=== PATIENT | female | born 1995 | race Caucasian/White ===

== ENCOUNTER → 2024-03-06 | Outpatient (CLI) | payer OTHER ==
[2024-03-06 19:48] LABS: HEMATOCRIT 31.2 % (36.0-47.0); HEMOGLOBIN 9.4 g/dl (12.0-15.5); MEAN CORPUSCULAR HGB CONC 30.1 g/dl (32.0-36.5); PLATELET COUNT, AUTOMATED 188 10^3/uL (150-450); RED BLOOD COUNT 3.76 10^6/uL (4.00-5.40); WHITE BLOOD COUNT 6.5 10^3/uL (4.0-10.0)
[2024-03-06 20:06] LABS: TOTAL PROTEIN,RANDOM URINE 39.2 MG/DL (0.0-14.0)
[2024-03-06 20:09] LABS: URIC ACID 5.3 MG/DL (3.1-7.8)
[2024-03-06 20:11] LABS: LDH LACTATE DEHYDROGENASE 210 U/L (120-246)
[2024-03-06 20:12] LABS: ALT/SGPT < 9 U/L (7.0-40); AST/SGOT 12 U/L (<34); BILIRUBIN,TOTAL 0.6 MG/DL (0.3-1.2); CREATININE FOR GFR 0.64 MG/DL (0.55-1.30); GLOMERULAR FILTRATION RATE > 60.0 (>60); IRON (FE) 41 UG/DL (50-170); PERCENT SATURATION 9.1 % (13.2-45.0); TOTAL IRON BINDING CAPACITY 450 UG/DL (250-425)
[2024-03-06 20:26] LABS: CREATININE,RANDOM URINE 283.8 MG/DL
== END ==
LOC: M PLALAB 16:08
PROVIDERS: ATTEND Nurse Practitioner Family
DX: O16.3 Unspecified maternal hypertension, third trimester (principal); Z3A.36 36 weeks gestation of pregnancy

== ENCOUNTER → 2024-03-06 | Outpatient (REF) | payer OTHER ==
[~2024-03-06] MED LIST: ASPI81TA26 PO; IRON65TA2 PO; THERTAB52 PO; VITA-243 PO
== END ==
LOC: M PLALAB 14:34
PROVIDERS: ATTEND Nurse Practitioner Family
DX: O16.3 Unspecified maternal hypertension, third trimester (principal); Z3A.36 36 weeks gestation of pregnancy

== ENCOUNTER 2024-03-16 13:09 | Outpatient (CLI) | payer OTHER ==
[~2024-03-16] VITALS: Ht 152.4 cm; Wt 120.0 kg
[~2024-03-16 13:09] MED LIST changes: +ALBUTEROL SULFATE 2.5MG/0.5ML INH NEB SOLN INH PRN; +EPINEPHrine INJ 1 MG/ML 1ML AMP IM PRN; +diphenhydrAMINE 50MG/ML VIAL IV PRN; +methylPREDNISolone 125MG 2ML VIAL IV PRN
[2024-03-16 13:20] VITALS: BP 134/83; O2SAT 98
[2024-03-16] MEDS: diphenhydrAMINE 25MG CAP PO ONE (13:28)
[2024-03-16] MEDS: ACETAMINOPHEN 650 MG PO ONE (13:28)
[2024-03-16] MEDS: FERRIC CARBOXYMALTOSE 750 MG (VIAL MATE) IN 100ML NS IV ONE (13:34)
[2024-03-16 14:30] VITALS: BP_SYST 113; BP_SYST 177; BP_DIAS 56; BP_DIAS 84; O2SAT 99
== END 2024-03-16 14:30 | disposition home or self-care (01) ==
LOC: M INFU 13:09
PROVIDERS: ATTEND Nurse Practitioner Family
DX: D64.9 Anemia, unspecified (principal); Z91.048 Other nonmedicinal substance allergy status
CPT/HCPCS: 96365; J1439

== ENCOUNTER 2024-03-23 12:20 | Outpatient (CLI) | payer OTHER ==
[~2024-03-23] VITALS: Ht 154.9 cm; Wt 119.0 kg
[2024-03-23] MEDS: diphenhydrAMINE 25MG CAP PO ONE (12:30)
[2024-03-23] MEDS: ACETAMINOPHEN 650 MG PO ONE (12:30)
[2024-03-23] MEDS: FERRIC CARBOXYMALTOSE 750 MG (VIAL MATE) IN 100ML NS IV ONE (12:40)
[2024-03-23 12:58] VITALS: BP 135/77; O2SAT 98
== END 2024-03-23 13:00 ==
LOC: M INFU 12:20
PROVIDERS: ATTEND Nurse Practitioner Family
DX: D64.9 Anemia, unspecified (principal); Z91.09 Other allergy status, other than to drugs and biological substances
CPT/HCPCS: 96365; J1439

== ENCOUNTER 2024-03-26 02:21 | Inpatient (IN) | payer OTHER ==
[~2024-03-26] VITALS: Ht 152.4 cm; Wt 118.3 kg
[2024-03-26] VITALS (10 sets, daily range): BP systolic 110–142; BP diastolic 63–80; TEMP 96.6; O2SAT 97–100
[~2024-03-26 02:21] MED LIST changes: -ALBUTEROL SULFATE 2.5MG/0.5ML INH NEB SOLN INH PRN; -EPINEPHrine INJ 1 MG/ML 1ML AMP IM PRN; -diphenhydrAMINE 50MG/ML VIAL IV PRN; -methylPREDNISolone 125MG 2ML VIAL IV PRN
[2024-03-26] MEDS ORDERED: ceFAZolin SOD 2 GM in IV 1 EA IV ONE (05:40)
[2024-03-26] MEDS: LACTATED RINGER'S 1000 ML IV STA (05:40)
[2024-03-26] MEDS ORDERED: LR 1,000 ML IV SCH (05:40)
[2024-03-26 06:54] LABS: HEMATOCRIT 35.1 % (36.0-47.0); MEAN CORPUSCULAR HEMOGLOBIN 26.4 pg (27.0-33.0); MEAN CORPUSCULAR HGB CONC 31.3 g/dl (32.0-36.5); MEAN CORPUSCULAR VOLUME 84.2 fl (80.0-96.0); PLATELET COUNT, AUTOMATED 177 10^3/uL (150-450); RED BLOOD COUNT 4.17 10^6/uL (4.00-5.40); WHITE BLOOD COUNT 6.9 10^3/uL (4.0-10.0)
[2024-03-26] MEDS ORDERED: ceFAZolin SOD 3 GM in IV 1 EA IV ONE (07:20)
[2024-03-26] MEDS: ceFAZolin SOD 2 GM in IV 1 EA IV ONE (07:30)
[2024-03-26] MEDS: BICITRA 30ML SOLN UDC PO ONE (07:32)
[2024-03-26] MEDS: ceFAZolin SOD 1 GM in DEXTROSE 5% (D5W) ADV/MINI-BAG 50 ML IV ONE (07:33)
[2024-03-26] MEDS ORDERED: MORPHINE PRES-FREE INJ 10 MG/10 ML VIAL As Ordered ONE (07:35)
[2024-03-26] MEDS ORDERED: OXYTOCIN 30UNITS IN 0.9% NaCl 500ML IV BAG As Ordered ONE (07:35)
[2024-03-26] MEDS ORDERED: METOCLOPRAMIDE INJ 10MG/2ML VIAL As Ordered ONE (07:35)
[2024-03-26] MEDS ORDERED: ONDANSETRON 4MG 2ML VIAL As Ordered ONE (07:36)
[2024-03-26] MEDS ORDERED: KETOROLAC 60MG 2ML VIAL As Ordered ONE (07:36)
[2024-03-26] MEDS ORDERED: ACETAMINOPHEN 1000MG/100ML IV BAG As Ordered ONE (07:38)
[2024-03-26 07:51] LABS: HEPATITIS C VIRUS ABY INDEX < 0.02 INDEX (<0.8)
[2024-03-26] MEDS: PRENATAL VITAMINS CHEWABLE TABLET PO SCH (09:00)
[2024-03-26] MEDS ORDERED: PHENYLephrine 500MCG 5ML (100MCG/ML) SYRINGE As Ordered ONE (09:15)
[2024-03-26 09:21] LABS: CORD GAS ABE A -5.5; CORD GAS HCO3 A 22.8 MMOL/L; CORD GAS O2 SAT A 30.5 %; CORD GAS PCO2 A 57.4 mmHg; CORD GAS PH A 7.217 UNITS; CORD GAS PO2 A 17.7 mmHg; CORD GAS SBC A 18.6 MMOL/L; CORD GAS TCO2 A 24.6 MMOL/L
[2024-03-26 09:22] LABS: CORD GAS HCO3 V 22.9 MMOL/L; CORD GAS O2 SAT V 45.6 %; CORD GAS PCO2 V 49.5 mmHg; CORD GAS PH V 7.284 UNITS; CORD GAS PO2 V 21.6 mmHg; CORD GAS SBC V 20.1 MMOL/L; CORD GAS TCO2 V 24.5 MMOL/L
[2024-03-26] MEDS ORDERED: RHOGAM 300MCG (1500IU) INJ IM SCH (10:00)
[2024-03-26] MEDS ORDERED: MEPERIDINE 25 MG/ML 1ML VIAL IV PRN (10:25)
[2024-03-26] MEDS ORDERED: HYDROMORPHONE HCL 0.5 MG/ 0.5 ML SYRINGE IV PRN (10:25)
[2024-03-26] MEDS ORDERED: fentaNYL 100 MCG/2 ML INJECTION IV PRN (10:25)
[2024-03-26] MEDS ORDERED: oxyCODONE 5MG TAB PO PRN (10:25)
[2024-03-26] MEDS: ONDANSETRON 4MG 2ML VIAL IV PRN (10:53)
[2024-03-26] MEDS: LR 1,000 ML IV SCH (13:00)
[2024-03-26] MEDS: PROMETHAZINE 25MG/ML 1ML VIAL IV ONE (14:16)
[2024-03-26] MEDS ORDERED: KETOROLAC 30 MG/ML 1ML VIAL IV SCH (15:00)
[2024-03-26] MEDS: LACTATED RINGER'S 1000 ML IV ONE (15:35)
[2024-03-26] MEDS: KETOROLAC 30 MG/ML 1ML VIAL IV SCH (16:05)
[2024-03-26] MEDS: DOCUSATE SODIUM 100MG CAPSULE PO PRN (20:51)
[2024-03-26] MEDS: SIMETHICONE 80MG CHEW TAB PO PRN (20:51)
[2024-03-27] MEDS ORDERED: IBUP-1022 PO (01:26)
[2024-03-27] MEDS ORDERED: COLA100C5 PO (01:26)
[2024-03-27] MEDS ORDERED: OXYC1TAB23 PO (01:27)
[2024-03-27 01:59] VITALS: BP 131/63; O2SAT 97
[2024-03-27 06:01] VITALS: BP 130/64; O2SAT 97
[2024-03-27 08:08] LABS: HEMATOCRIT 27.8 % (36.0-47.0); MEAN CORPUSCULAR HEMOGLOBIN 26.3 pg (27.0-33.0); MEAN CORPUSCULAR HGB CONC 30.9 g/dl (32.0-36.5); PLATELET COUNT, AUTOMATED 143 10^3/uL (150-450); RED BLOOD COUNT 3.27 10^6/uL (4.00-5.40); WHITE BLOOD COUNT 9.7 10^3/uL (4.0-10.0)
[2024-03-27 08:16] LABS: HEMOGLOBIN 8.6 g/dl (12.0-15.5)
[2024-03-27 10:00] VITALS: BP 119/60; O2SAT 99
[2024-03-27] MEDS: IBUPROFEN 800 MG TAB PO PRN (10:13)
[2024-03-27] MEDS ORDERED: THERTAB19 PO (12:42)
[2024-03-27 14:00] VITALS: BP 137/63; O2SAT 100
[2024-03-27 18:00] VITALS: BP 133/63; O2SAT 97
[2024-03-27 22:00] VITALS: BP 113/59; O2SAT 98
[2024-03-28 01:41] VITALS: BP 132/69; O2SAT 96
[2024-03-28] MEDS: PERCOCET 5MG/325MG TAB PO PRN ×2 (02:26→09:57)
[2024-03-28 06:55] VITALS: BP 128/62; O2SAT 98
[2024-03-28] MEDS ORDERED: MEASLES,MUMPS,RUBELLA VACCINE INJ (MMR-II) SC.IMMUN ONE (09:00)
== END 2024-03-28 14:01 | disposition home or self-care (01) | DRG 788 ==
LOC: PREOBSVTOIN 02:21 → M LDI 05:35 → M OBS 11:24
PROVIDERS: ADMIT Specialist; ATTEND Specialist
PROC: 10D00Z1 Extraction of Products of Conception, Low, Open Approach (ICD-10-PCS; principal; 2024-03-26 09:30)
DX: O34.211 Maternal care for low transverse scar from previous cesarean delivery (principal); Z37.0 Single live birth; Z3A.39 39 weeks gestation of pregnancy